=== PATIENT | male | born 1975 | race Two or more races ===

== ENCOUNTER 2021-03-26 11:00 | Inpatient (IN) | payer OTHER ==
[~2021-03-26] VITALS: Ht 172.7 cm; Wt 77.1 kg
[2021-03-26] MEDS ORDERED: IRBESARTAN-HCT1 EACH PO (14:32)
[2021-04-01] MEDS ORDERED: IRBESARTAN-HCT1 EAC1 (09:34)
[2021-04-04] MEDS ORDERED: AMOX-CLAV 875-1 EACH PO (13:03)
[2021-04-04] MEDS ORDERED: PERCOCET 5-3251 EACH PO (13:03)
== END 2021-04-04 14:11 | disposition home or self-care (01) | DRG 331 ==
LOC: SURH 03-31 05:56 → O/R 03-31 05:56 → SURG 03-31 10:30 → SURH 03-31 14:17 → SURG 03-31 21:15 → SURH 04-04 14:11
PROVIDERS: ADMIT Surgery; ATTEND Surgery
PROC: 0DNW4ZZ Release Peritoneum, Percutaneous Endoscopic Approach (ICD-10-PCS; 2021-03-31)
PROC: 0DTB4ZZ Resection of Ileum, Percutaneous Endoscopic Approach (ICD-10-PCS; 2021-03-31)
PROC: 0DBK4ZZ Excision of Ascending Colon, Percutaneous Endoscopic Approach (ICD-10-PCS; principal; 2021-03-31 10:30)
DX: K50.818 Crohn's disease of both small and large intestine with other complication (principal); J45.20 Mild intermittent asthma, uncomplicated; K66.0 Peritoneal adhesions (postprocedural) (postinfection)

== ENCOUNTER 2021-06-15 11:14 | Emergency (ER) | payer OTHER ==
[~2021-06-15] VITALS: Ht 172.7 cm; Wt 77.1 kg
[~2021-06-15 11:14] MED LIST: AMOX-CLAV 875-1 EACH PO; IRBESARTAN-HCT1 EAC1; IRBESARTAN-HCT1 EACH PO; PERCOCET 5-3251 EACH PO
== END 2021-06-15 15:13 | disposition home or self-care (01) ==
LOC: ER 11:14
DX: K50.90 Crohn's disease, unspecified, without complications (principal); Z03.818 Encounter for observation for suspected exposure to other biological agents ruled out; Z98.0 Intestinal bypass and anastomosis status; I10 Essential (primary) hypertension